=== PATIENT | male | born 1990 | race Two or more races ===

== ENCOUNTER 2025-03-10 22:00 | Emergency (ER) | payer MEDICAID, OTHER ==
[~2025-03-10] VITALS: Ht 177.8 cm; Wt 77.3 kg
[2025-03-10 22:20] VITALS: PULSE 114; RESP 25; O2SAT 97
[2025-03-10 22:32] LABS: Hematocrit 40.2 % (41.0-53.0); Hemoglobin 14.2 g/dL (13.5-17.5); Mean Corpuscular Hemoglobin 33.0 pg (28.0-32.0); Mean Corpuscular Volume 93.5 fL (80.0-100.0); Nucleated Red Blood Cells % 0.3 %
[2025-03-10 22:40] LABS: Anion Gap 13 (5-15); Carbon Dioxide 25 mmol/L (20-31); Chloride 101 mmol/L (98-107); Potassium 4.0 mmol/L (3.5-5.1); Sodium 139 mmol/L (136-145)
[2025-03-10 22:41] LABS: Calcium 9.9 mg/dL (8.7-10.4)
[2025-03-10 22:46] LABS: BUN/Creatinine Ratio 17.6 (10.0-20.0); Blood Urea Nitrogen 16 mg/dL (9-23); Glucose 105 mg/dL (74-106)
[2025-03-10] MEDS: HALOPERIDOL LACTATE 5 MG/ML INJ VIAL IM ONE (22:47)
[2025-03-10 22:48] LABS: Acetaminophen < 2.0 UG/ML (10.0-20.0); Salicylate < 3.0 mg/dL (-30)
--- NOTE | 2025-03-10 23:08 | ED.PDOC ---
Psychiatric HPI Comments 34 year old male presents to the ED via EMS with a chief complaint of suicide ideation onset today 03/10/25). Per EMS, patient was at a "worship home", witnesses noticed patient was in the shower for over 3 hours, when they went to check on patient, he then stuck shower head in his mouth in attempt to commit suicide. When witnesses tried to help patient, he became combative. Upon EMS arrival, patient was non-compliant to care, was placed on 4 point restraint prior to ED arrival, HR was in the 200s, upon ED arrival was 117. Patient is shivering, grinding his teeth, not answering questions. No other associated symptoms, modifiers, recent injuries or sick contacts present at this time. Chief Complaint: Suicidal Time Seen by MD: 22:45 Reviewed Notes: Medications, Allergies Information Source: Emergency Med Personnel Mode of Arrival: EMS Severity of Mental Status: Moderate Severity of Symptoms: Moderate Prehospital treatment: Restraints Presents with: Suicidal Ideation Attempt: Other Ingestion: None Circumstance: Other Current substance abuse: Unknown Past Medical History PAST MEDICAL HISTORY: Unknown Surgical History: Unknown Family History Family History: Unknown Social History Smoker: Unknown Alcohol: Unknown Drugs: Unknown Lives In: Homeless Constitutional: denies: chills, diaphoresis, fatigue, fever, malaise, sweats, weakness, others EENTM: denies: blurred vision, double vision, ear bleeding, ear discharge, ear drainage, ear pain, ear ringing, eye pain, eye redness, hearing loss, mouth pain, mouth swelling, nasal discharge, nose bleeding, nose congestion, nose pain, photophobia, tearing, throat pain, throat swelling, voice changes, others Respiratory: denies: cough, hemoptysis, orthopnea, SOB at rest, shortness of breath, SOB with excertion, stridor, wheezing, others Cardiovascular: denies: chest pain, dizzy spells, diaphoresis, Dyspnea on exertion, edema, irregular heart beat, left arm pain, lightheadedness, palpitations, PND, syncope, others Gastrointestinal: denies: abdomen distended, abdominal pain, blood streaked bowels, constipated, diarrhea, dysphagia, difficulty swallowing, hematemesis, melena, nausea, poor appetite, poor fluid intake, rectal bleeding, rectal pain, vomiting, others Genitourinary: denies: burning, dysuria, flank pain, frequency, hematuria, incontinence, penile discharge, penile sore, pain, testicle pain, testicle swelling, urgency, others Neurological: denies: dizziness, fainting, headache, left sided numbness, left sided weakness, numbness, paresthesia, pre-existing deficit, right sided numbness, right sided weakness, seizure, speech problems, tingling, tremors, wea kness, others Musculoskeletal: denies: back pain, gout, joint pain, joint swelling, muscle pain, muscle stiffness, neck pain, others Integumetry: denies: bruises, change in color, change in hair/nails, dryness, l aceration, lesions, lumps, rash, wounds, others Allergic/Immunocompromised: denies: Difficulty Healing, Frequent Infections, Hives, Itching, others Hematologic/Lymphatic: denies: anemia, blood clots, easy bleeding, easy bruising, swollen glands, others Endocrine: denies: excessive hunger, excessive sweating, excessive thirst, excessive urination, flushing, intolerance to cold, intolerance to heat, unexplained weight gain, unexplained weight loss, others Psychiatric: reports: suicidal; denies: anxiety, bipolar disorder, depression, hopeless, panic disorder, schizophrenia, sleepless, others All Other Systems: Reviewed and Negative Physical Exam General Appearance: Normal HEENT: Normal ENT Inspection, Pharynx Normal, TMs Normal Neck: Full Range of Motion, Non-Tender, Normal, Normal Inspection Respiratory: Chest Non-Tender, Lungs Clear, No Accessory Muscle Use, No Respiratory Distress, Normal Breath Sounds Cardiovascular: No Edema, No JVD, No Murmur, No Gallop, Normal Peripheral Pulses, Regular Rate/Rhythm Breast Exam: Deferred Gastrointestinal: No Organomegaly, Non Tender, No Pulsatile Mass, Normal Bowel Sounds, Soft Genitalia: Deferred Pelvic: Deferred Rectal: Deferred Extremities: No calf tenderness, Normal capillary refill, Normal inspection, Normal range of motion, Non-tender, No pedal edema Musculoskeletal : Apperance: Normal Neurologic: Alert, 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 Was a procedure done?: No X-Ray, Labs, Meds, VS Vital Signs Date Time Temp Pulse Resp B/P (MAP) Pulse Ox O2 Delivery O2 Flow Rate FiO2 03/12/25 12:02 98.9 108 18 124/77 (93) 98 98.9 03/12/25 07:51 88 18 98 Room Air* 0 21 03/12/25 07:47 98.1 80 16 96/65 (75) 97 98.1 03/11/25 22:22 98.1 79 16 101/63 (76) 97 98.1 03/11/25 20:22 98.8 76 16 94/64 (74) 98 98.8 03/11/25 20:22 98 Room Air* 0 03/11/25 09:59 98.4 68 12 96/65 (75) 97 98.4 03/11/25 08:41 Room Air* 0 21 03/10/25 22:20 114 25 107/50 (69) 97 03/10/25 22:20 114 25 97 Room Air* 0 03/10/25 22:12 98.0 210 16 132/84 (100) 100 98.0 Lab Test 03/11/25 08:36 03/10/25 22:33 03/10/25 22:20 Range/Units Urine Color Light-yellow Yellow Urine Clarity Clear Clear Urine pH 5.5 5.0-9.0 Urine Specific [place] 1.020 1.001-1.035 Urine Protein Negative Negative Urine Ketones Negative Negative Urine Blood Negative Negative /uL Urine Nitrite Negative Negative Urine Bilirubin Negative Negative Urine Urobilinogen Normal Negative mg/dL Urine Leukocyte Esterase Negative Negative /uL Urine RBC 1 0 - 3 /hpf Urine Microscopic WBC 1 0-3 /HPF Urine Squamous Epithelial Cells Few <5 /hpf Urine Uric Acid Crystals Few None Seen /hpf Urine Bacteria None seen None Seen /hpf Urine Glucose Normal Normal mg/dL Urine Opiates Screen Neg NEGATIVE Urine Fentanyl Screen Neg NEGATIVE Urine Barbiturates Screen Neg NEGATIVE Urine Phencyclidine Screen Neg NEGATIVE Urine Amphetamines Screen Neg NEGATIVE Urine Benzodiazepines Screen Pos NEGATIVE Urine Cocaine Screen Neg NEGATIVE Urine Cannabinoids Screen Neg NEGATIVE POC Glucose 107 H 70-106 mg/dl White Blood Count 9.0 4.4-10.8 10^3/uL Red Blood Count 4.30 L 4.5-5.90 10^6/uL Hemoglobin 14.2 13.5-17.5 g/dL Hematocrit 40.2 L 41.0-53.0 % Mean Corpuscular Volume 93.5 80.0-100.0 fL Mean Corpuscular Hemoglobin 33.0 H 28.0-32.0 pg Mean Corpuscular Hemoglobin Concent 35.3 32.0-36.0 g/dL Red Cell Distribution Width 13.6 11.8-14.3 % Platelet Count 384 140-450 10^3/uL Mean Platelet Volume 7.2 6.9-10.8 fL Neutrophils (%) (Auto) 59.4 37.0-80.0 % Lymphocytes (%) (Auto) 30.3 10.0-50.0 % Monocytes (%) (Auto) 8.6 0.0-12.0 % Eosinophils (%) (Auto) 0.7 0.0-7.0 % Basophils (%) (Auto) 1.0 0.0-2.0 % Neutrophils # (Auto) 5.3 1.6-8.6 10 ^3/uL Lymphocytes # (Auto) 2.7 0.4-5.4 10 ^3/uL Monocytes # (Auto) 0.8 0-1.3 10 ^3/uL Eosinophils # (Auto) 0.1 0-0.8 10 ^3/uL Basophils # (Auto) 0.1 0-0.2 10 ^3/uL Nucleated Red Blood Cells 0.3 % Sodium Level 139 136-145 mmol/L Potassium Level 4.0 3.5-5.1 mmol/L Chloride Level 101 98-107 mmol/L Carbon Dioxide Level 25 20-31 mmol/L Anion Gap 13 5-15 Blood Urea Nitrogen 16 9-23 mg/dL Creatinine 0.91 0.700-1.30 mg/dL Glomerular Filtration Rate Calc 115 >90 mL/min BUN/Creatinine Ratio 17.6 10.0-20.0 Serum Glucose 105 74-106 mg/dL Calcium Level 9.9 8.7-10.4 mg/dL Salicylates Level < 3.0 -30 mg/dL Acetaminophen Level < 2.0 L 10.0-20.0 UG/ML Plasma/Serum Blood Alcohol < 3.0 <10 mg/dL Time of 1ST Reevaluation: 23:15 Reevaluation 1ST: Unchanged Patient Education/Counseling: Diagnosis, Treatment, Prognosis Family Education/Counseling: No Family Present Departure 1 Departure Time of Disposition: 18:15 (Patient presenting with suicidal ideation. It is medically cleared. Patient was accepted to a psychiatric facility.) Impression: Primary Impression: Suicide ideation [facility] Condition: Serious Critical Care Note Critical Care Time?: Yes Critical care comment: Suicidal ideation Authorized and Performed by: Jaron Yoo MD Total critical care time: Approximately 43 minutes Due to a high probability of clinically significant, life threatening deterioration, the patient required my highest level of preparedness to intervene emergently and I personally spent this critical care time directly and personally managing the patient. This critical care time included obtaining a history; examining the patient; pulse oximetry; ordering and review of studies; arranging urgent treatment with development of a management plan; evaluation of patient's response to treatment; frequent reassessment; and, discussions with other providers. This critical care time was performed to assess and manage the high probability of imminent, life-threatening deterioration that could result in multi-organ failure. It was exclusive of separately billable procedures and treating other patients and teaching time. Please see my other sections and the rest of the note for further information on patient assessment and treatment. Stability Stability form required: No I personally scribed for JARON YOO MD ([email or web address]) on 03/10/25 at 23:08. Electronically submitted by Stacie Arora ([email or web address]). JARON YOO MD Mar 10, 2025 23:08
[2025-03-10] MEDS: MIDAZOLAM HCL 5 MG/ML-1ML VIAL IM ONE ×2 (23:13)
--- NOTE | 2025-03-11 06:45 | DVHINCON2 ---
Date of Service if different f: Mar 11, 2025 Time of Service: 06:15 Consult Consult Note PSYCHIATRY ED NEW CONSULT HPI: 34 yo pt with PPH of schizophrenia presents to ED BIBA for safety, psychiatric stabilization, and possible med initiation/optimization in setting of SI/suicidal attempt. Psychiatry consulted for safety evaluation and recommendations in context of current presentation Per report, pt at current residence was in shower for over 3 hrs and subsequently stuck shower head in mouth in attempt to commit suicide via drowning. When witnesses intervened, pt became combative and en route to ED, pt placed on 4 pt restraints and needed chemical sedation with IM Versed Pt reports experiencing CAH to hurt self while in shower earlier hence attempted to drown self via placing shower head in mouth. Pt p/w moderate thought disorder, confusion, disorganized TP, paranoia, impaired reality testing, mild irritability, poor sleep, anxiety, possible decline in self care. 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 Currently not on any psychotropic agents for past several months, prior psych med trials include olanzapine, hx of med noncompliance noted Denies ETOH, THC or IDU prior to admission although some hx of THC/meth dependency, last use several weeks ago, never IVDU, never previously in any drug/etoh tx programs in past Single, no children, unemployed/ssi, lives by self at [facility] for past several years, also hx of homelessness, limited support system noted (immediate family primarily his mother) Unknown trauma hx. Denies FH of psych hospitalizations, suicide attempts, or completed suicides No acute medical/chronic pain issues although states is HIV+ but never on HAART tx. No hx of seizures/TBI, or recent head injuries, NKDA Some hx of SI/SIB via cutting, also hx of SA/PSG via OD resulting in several prior psych hospitalizations/5150 holds, last admission several months ago. Denies history of violence, aggression, or assaultive behaviors. Denies any legal problems. Does not have access to firearms MSE: General Appearance/Behavior: Alert/awake; appears stated age, marginal/fair grooming/hygiene; calm and cooperative, fair eye contact, no PMA/PMR Speech: coherent, rrr Thought Process: limited, concrete, GD Thought Content: Abnormal Thoughts and Perceptions: denies dissociative symptoms Homicidality / Violent Thoughts: adamantly denies HI Suicidality: passive SI Hallucinations: +CAH Delusions: +PI Obsessions /compulsions: None Judgment and Insight: marginal/limited Mood & Affect: "okay" with mood-congruent, somewhat restricted/appropriate Orientation: oriented x 3 Attention/Concentration: appears intact Cognition: grossly intact Assessment: 34 yo pt with PPH of schizophrenia presents to ED BIBA for safety, psychiatric stabilization, and possible med initiation/optimization in setting of SI/suicidal attempt. Pt currently expressing some SI and CAH resulting in earlier events resulting in ED admission. Not on any psychotropics for past several months which may be contributing to current symptoms. No outpt MH services at present. Pt agrees to talk with staff instead of acting on any suicidal feelings while in ED. Pt medically cleared in ED Acute safety risk remains elevated and is appropriate for inpatient psychiatric admission for further safety, psychiatric stabilization, and possible medication initiation/optimization. Pt willing to transfer to inpt psych facility voluntarily. Consider 5150 hold for DTS ONLY if needed for transfer or if no voluntary beds are available Primary Diagnosis: Schizophrenia unspecified. THC use d/o, unspecified. METH use disorder, unspecified Recommend VOL transfer to inpt psych facility for higher level of care 1:1 sitter is recommended Maintain suicide/elopement precautions Recommend restarting Olanzapine 15 mg qhs - first dose now Risks/benefits/alternative treatments discussed, informed consent provided by pt If patient later refuses voluntary hospitalization/ requests to be discharged from ED prior to transfer, please reconsult telepsych services to evaluate for 5150 hold Pt verbalized understanding and is receptive to above tx plan This case was discussed with ED nurse/provider and all parties in agreement with above tx plan Juan F Zavaleta MD Plan discussed with: Patient JUAN F ZAVALETA MD Mar 11, 2025 06:45
[2025-03-11] MEDS: OLANZapine 5 MG TAB PO ONE (07:00)
[2025-03-11 09:10] LABS: Urine Protein, UAD Negative (Negative)
[2025-03-11 09:12] LABS: Amphetamine Screen, Urine Neg (NEGATIVE); Barbiturate Scree,Urine Neg (NEGATIVE); Benzodiazephine Screen, Urine Pos (NEGATIVE); Cannabinoid Screen, Urine Neg (NEGATIVE); Cocaine Screen, Urine Neg (NEGATIVE); Opiate Scree,Urine Neg (NEGATIVE); Phencyclidine Screen, Urine Neg (NEGATIVE)
[2025-03-11 20:22] VITALS: O2SAT 98
[2025-03-11] MEDS: OLANZapine 5 MG TAB PO SCH (22:19)
[2025-03-12 07:51] VITALS: PULSE 88; RESP 18; O2SAT 98
[2025-03-12 12:02] VITALS: BP 124/77; PULSE 108; RESP 18; TEMP 98.9; O2SAT 98
== END 2025-03-12 12:36 ==
LOC: ER 22:00 → EDBD 22:00 → ER 03-12 12:36
DX: R45.851 Suicidal ideations (principal); Z79.899 Other long term (current) drug therapy
CPT/HCPCS: 36415; 80048; 80307; 80320; 80329; 81001; 82947; 85025; 96372; 99285; J1630; J2250; 82962